=== PATIENT | male | born 1980 | race Two or more races ===

== ENCOUNTER 2019-07-29 08:20 | Emergency (ER) | payer SELFPAY ==
[~2019-07-29] VITALS: Ht 170.2 cm; Wt 81.6 kg
[2019-07-29 08:55] VITALS: BP 163/95
[2019-07-29] MEDS ORDERED: IBUPROFEN 400 MG TABLET. PO ONE (09:00)
[2019-07-29 09:34] LABS: INFLUENZA A PATIENT POSITIVE (NEGATIVE); INFLUENZA B PATIENT NEGATIVE (NEGATIVE)
[2019-07-29] MEDS ORDERED: BENZ100C PO (09:44)
[2019-07-29] MEDS ORDERED: HYDR-3164 PO (09:44)
[2019-07-29] MEDS ORDERED: IBUP-1060 PO (09:44)
--- NOTE | 2019-07-29 09:44 | PHYS DOC ---
Past Medical History Past Medical History: No Pertinent History Alcohol Use: Occasionally Drug Use: None Adult General Chief Complaint Chief Complaint: SORE THROAT HPI HPI Patient is a 38 year old male patient without history of medical problem who presents with complaint of sore throat and cough. Patient complaining of nasal congestion, sore throat, earache, myalgias, chest soreness, nonproductive cough for the last 4 days that getting worse since last night and had subjective fever since last night with one episode of vomiting. Patient denies diarrhea, sick contact, abdominal pain, neck pain. Review of Systems Review of Systems Constitutional: Reports fever and chills Eyes: Denies change in visual acuity, redness, or eye pain [] HENT: Reports nasal congestion, sore throat, earache Respiratory: Reports cough and shortness of breath Cardiovascular: No additional information not addressed in HPI [] GI: Denies abdominal pain, bloody stools or diarrhea ,[ reports nausea and vomiting] : Denies dysuria or hematuria [] Musculoskeletal: Denies back pain or joint pain [] Integument: Denies rash or skin lesions [] Neurologic: Denies headache, focal weakness or sensory changes [] Endocrine: Denies polyuria or polydipsia [] All other systems were reviewed and found to be within normal limits, except as documented in this note. Current Medications Current Medications Current Medications Medications (Trade) Dose Ordered Sig/Naveen Start Time Stop Time Status Last Admin Dose Admin Ibuprofen (Motrin) 800 mg 1X ONCE 07/29/19 09:00 07/29/19 09:07 DC 07/29/19 09:11 800 MG Allergies Allergies Allergies Coded Allergies Type Severity Reaction Last Updated Verified No Known Drug Allergies 07/29/19 No Physical Exam Physical Exam Constitutional: Well developed, well nourished, moderate distress, non-toxic appearance. [] HENT: Normocephalic, atraumatic, bilateral external ears normal, oropharynx moist, left tonsillar edema and bilateral tonsillar erythema, no oral exudates, nasal congestion. [] Eyes: PERRLA, EOMI, conjunctiva normal, no discharge. [] Neck: Normal range of motion, no tenderness, supple, no stridor. [] Cardiovascular:Heart rate regular rhythm, no murmur [] Lungs & Thorax: Bilateral breath sounds clear to auscultation [] Abdomen: Bowel sounds normal, soft, no tenderness, no masses, no pulsatile masses. [] Skin: Warm, dry, no erythema, no rash. [] Back: No tenderness, no CVA tenderness. [] Extremities: No tenderness, no cyanosis, no clubbing, ROM intact, no edema. [] Neurologic: Alert and oriented X 3, normal motor function, normal sensory function, no focal deficits noted. [] Psychologic: Affect normal, judgement normal, mood normal. [] Current Patient Data Vital Signs Vital Signs Date Time Temp Pulse Resp B/P (MAP) Pulse Ox O2 Delivery O2 Flow Rate FiO2 07/29/19 08:55 101.5 118 20 163/95 (117) 96 Room Air 101.5 Lab Values Laboratory Tests Test 07/29/19 09:00 Influenza Type A Antigen Positive (NEGATIVE) Influenza Type B Antigen Negative (NEGATIVE) EKG EKG [] Radiology/Procedures Radiology/Procedures [] Course & Med Decision Making Course & Med Decision Making Pertinent Labs reviewed. (See chart for details) Evaluation of patient in ER showed 28-year-old male patient with flulike symptoms for 4 days. Patient had fever off and a fall and positive for a test in ER. Patient informed about plan of care for symptomatic treatment. I've spoken with the patient and/or caregivers. I've explained the patient's condition, diagnosis and treatment plan based on information available to me at this time. I've answered the patient's and/or caregivers questions and addressed any concerns. The patient and/or caregivers have a good understanding the patient's diagnosis, condition and treatment plan as can be expected at this point. Vital signs have been stabilized. The patient's condition is stable for discharge from the emergency department. The patient will pursue further outpatient evaluation with her primary care provider or other designated consulting physician as outlined in the discharge instructions. Patient and/or caregivers are agreeable to this plan of care and follow-up instructions have been explained in detail. The patient and/or caregivers have received these instructions in written format and expressed understanding of these discharge instructions. The patient and her caregivers are aware that if any significant change in condition or worsening of symptoms should prompt him to immediately return to this of the closest emergency department. If an emergent department is not readily available I would encourage him to call 911. Evens Disclaimer Evens Disclaimer This electronic medical record was generated, in whole or in part, using a voice recognition dictation system. Departure Departure Impression: Primary Impression: Influenza B Additional Impression: Fever Disposition: 01 HOME, SELF-CARE (at 0 [phone]) Condition: IMPROVED Referrals: NO PCP (PCP) Patient Instructions: Cough, Adult, Fever, Adult, Influenza, Adult Additional Instructions: Drink plenty of liquids Follow-up with your primary care physician in 3-5 days Return to ER if not getting better Take alternate Tylenol and ibuprofen every 4 hours for fever and pain Scripts Benzonatate (TESSALON PERLE) 100 Mg Capsule 1 CAP PO TID for cough, #21 CAP Prov: FLOR BURDICK MD 07/29/19 Hydrocodone/Apap 5-325 (NORCO 5-325 TABLET) 1 Each Tablet 1 TAB PO PRN Q6HRS PRN for PAIN, #14 TAB 0 Refills Prov: FLOR BURDICK MD 07/29/19 Ibuprofen (IBUPROFEN) 800 Mg Tablet 800 MG PO PRN Q8HRS PRN for INFLAMMATION, #20 TAB Prov: FLOR BURDICK MD 07/29/19 Problem Qualifiers Additional Impression: Fever Fever type: unspecified Qualified Codes: R50.9 - Fever, unspecified FLOR BURIDCK MD Jul 29, 2019 09:44
== END 2019-07-29 10:19 | disposition home or self-care (01) ==
LOC: ER 08:20
DX: J11.1 Influenza due to unidentified influenza virus with other respiratory manifestations (principal)
CPT/HCPCS: 87804; 99284-25

== ENCOUNTER 2020-09-28 12:47 | Emergency (ER) | payer SELFPAY ==
[~2020-09-28] VITALS: Ht 175.3 cm; Wt 78.0 kg
[~2020-09-28 12:47] MED LIST: BENZ100C PO; HYDR-3164 PO; IBUP-1060 PO
[2020-09-28 13:42] VITALS: BP 147/81
--- NOTE | 2020-09-28 14:19 | RAD ---
PROCEDURE: XR FINGER(S)_RIGHT 2+VIEWS STUDY DATE: 09/28/2020 CLINICAL INDICATION / HISTORY: Reason: pain injury, pt caught hand between to boxes, bruising tip of ring finger / Spl. Instructions: / History: . TECHNIQUE: Right fourth finger - 3 Views: PA, oblique, and lateral views were obtained. COMPARISON: None FINDINGS: No fracture, dislocation, or other abnormality is identified. Subtle soft tissue swelling i s present on the radial aspect of the distal phalanx. IMPRESSION: Right fourth finger. No acute osseous abnormality. Possible soft tissue contusion on the radial aspect. Electronically signed by: Cris Espinoza MD (09/28/2020 2:16 PM) [id number]
[2020-09-28] MEDS ORDERED: CEPH500T PO (14:55)
--- NOTE | 2020-09-28 14:55 | PHYS DOC ---
Past Medical History Past Medical History: No Pertinent History Past Surgical History: No Surgical History Smoking Status: Never Smoker Alcohol Use: Occasionally Drug Use: None General Adult EDM: Chief Complaint: FINGER INJURY HPI: HPI: Patient is a 40 year old male who presents to the ED today complaining of 8 out of 10 throbbing right ring finger pain that began 3 days ago after he smashed his finger in between boxes at work. He is employed at [employer]. He is right-handed. Patient states he is concerned he could have infection to the finger because there is an open wound. Denies any fever. Tetanus up-to-date. States the pain is worse on touching the finger. Denies anything specifically relieving the pain. Describes the pain as sharp and intermittent. Review of Systems: Review of Systems: Constitutional: Denies fever or chills. [] Musculoskeletal: Denies back pain or joint pain. [] Integument: Reports right ring finger pain Neurologic: Denies headache, focal weakness or sensory changes. [] Psychiatric: Denies depression or anxiety. [] Heart Score: Risk Factors: Risk Factors: DM, Current or recent (<one month) smoker, HTN, HLP, family history of CAD, obesity. Risk Scores: Score 0 - 3: 2.5% MACE over next 6 weeks - Discharge Home Score 4 - 6: 20.3% MACE over next 6 weeks - Admit for Clinical Observation Score 7 - 10: 72.7% MACE over next 6 weeks - Early Invasive Strategies Allergies: Allergies: Allergies Coded Allergies Type Severity Reaction Last Updated Verified No Known Drug Allergies 07/29/19 No Physical Exam: PE: Constitutional: Well developed, well nourished, no acute distress, non-toxic appearance. [] Skin: Right ring finger with no obvious deformity, distal end of the right ring finger radial aspect with a superficial skin avulsion approximately 1.5 cm long with the redness but not cellulitis, no drainage. Full range of motion to the right ring finger. +2 right radial pulse. Adequate ulnar sensation to the right ring finger. Cap refill less than 2 seconds of right ring finger. Back: No tenderness, no CVA tenderness. [] Extremities: No tenderness, no cyanosis, no clubbing, ROM intact, no edema. [] Neurologic: Alert and oriented X 3, normal motor function, normal sensory function, no focal deficits noted. [] Psychologic: Affect normal, judgement normal, mood normal. [] Current Patient Data: Vital Signs: Vital Signs Date Time Temp Pulse Resp B/P (MAP) Pulse Ox O2 Delivery O2 Flow Rate FiO2 09/28/20 13:42 97.5 70 16 147/81 (103) 98 Room Air 97.5 EKG: EKG: [] Radiology/Procedures: Radiology/Procedures: []PROCEDURE: FINGER(S) RIGHT PROCEDURE: XR FINGER(S)_RIGHT 2+VIEWS STUDY DATE: 09/28/2020 CLINICAL INDICATION / HISTORY: Reason: pain injury, pt caught hand between to boxes, bruising tip of ring finger / Spl. Instructions: / History: . TECHNIQUE: Right fourth finger - 3 Views: PA, oblique, and lateral views were obtained. COMPARISON: None FINDINGS: No fracture, dislocation, or other abnormality is identified. Subtle soft tissue swelling is present on the radial aspect of the distal phalanx. IMPRESSION: Right fourth finger. No acute osseous abnormality. Possible soft tissue contusion on the radial aspect. Electronically signed by: Verena Espinoza MD (09/28/2020 2:16 PM) [id number] DICTATED and SIGNED BY: VERENA ESPINOZA MD DATE: 09/28/20 [id number] Course & Med Decision Making: Course & Med Decision Making Pertinent Labs and Imaging studies reviewed. (See chart for details) This is a 40-year-old male patient presented to the ED today with right ring finger injury that occurred 3 days ago after he smashed his finger in between boxes. Tetanus up-to-date. Right ring finger x-rays interpreted by radiologist are negative for any acute findings. Patient has an open wound to the right ring finger distal and that is erythematous. Does not look infected right though patient is very interested in antibiotics. Given prescription for cephalexin. Provided wound care instructions and return precautions. Dragon Disclaimer: Evens Disclaimer: This electronic medical record was generated, in whole or in part, using a voice recognition dictation system. Departure Departure Impression: Primary Impression: Finger laceration Qualified Codes: S61.214A - Laceration without foreign body of right ring finger without damage to nail, initial encounter Disposition: 01 DC HOME SELF CARE/HOMELESS Condition: STABLE Referrals: NO PCP (PCP) follow up with your doctor in 1-2 weeks Patient Instructions: Fingertip Laceration Additional Instructions: You wer like for people right now e seen for right ring finger injury, right ring finger x-rays are negative for any acute findings. Complete your antibiotics. You can wash your right hand including the finger with regular soap and water. Apply Neosporin to the open area twice a day. Take the prescribed antibiotics until completed. Scripts Cephalexin (CEPHALEXIN) 500 Mg Tablet 1 TAB PO TID, #30 TAB Prov: MASTER WALLACE APRN 09/28/20 MASTER WALLACE APRN Sep 28, 2020 14:55
== END 2020-09-28 15:00 | disposition home or self-care (01) ==
LOC: ER 12:47
DX: S61.214A Laceration without foreign body of right ring finger without damage to nail, initial encounter (principal); M79.644 Pain in right finger(s); R20.2 Paresthesia of skin; W23.0XXA Caught, crushed, jammed, or pinched between moving objects, initial encounter; Y93.89 Activity, other specified; Y92.89 Other specified places as the place of occurrence of the external cause; Y99.8 Other external cause status
CPT/HCPCS: 73140; 99283